=== PATIENT | male | born 1975 | race Caucasian/White ===

== ENCOUNTER 2016-12-30 07:44 | Emergency (ER) | payer SELFPAY ==
[~2016-12-30] VITALS: Ht 182.9 cm; Wt 80.0 kg
[2016-12-30 07:46] VITALS: BP 173/104; PULSE 88; RESP 20; TEMP 98.8; O2SAT 94
--- NOTE | 2016-12-30 08:11 | PD ---
HPI Chief Complaint: Back/ Neck Pain or Injury Time Seen by Provider: 08:08 Travel History International Travel<30 days: No Contact w/Intl Traveler<30days: No Traveled to known affect area: No History of Present Illness HPI 41-year-old male presents to the emergency Department with history of chronic back pain. He is requesting a prescription for ibuprofen. He is currently in a rehabilitation program which required a prescription. He does not want narcotics or any other pain medication. He complains of no other Acute problems. He has no known drug allergies. [facility] Social History Alcohol Use: No Tobacco Use: Yes Substance Use: Yes (currently in rehabilitation.) Allergies-Medications (Allergen,Severity, Reaction): Coded Allergies: No Known Allergies (Unverified , 12/30/16) Reported Meds & Prescriptions Reported Meds & Active Scripts Active Acetaminophen Extra Strength (Acetaminophen) 500 Mg Cap 1,000 Mg PO Q6H PRN Ibuprofen 600 Mg Tab 600 Mg PO Q6H PRN Review of Systems Except as stated in HPI: all other systems reviewed are Neg General / Constitutional: No: Fever Eyes: No: Visual changes HENT: No: Headaches Cardiovascular: No: Chest Pain or Discomfort Respiratory: No: Shortness of Breath Gastrointestinal: No: Abdominal Pain Genitourinary: No: Dysuria Musculoskeletal: No: Pain Skin: No Rash Neurologic: No: Weakness Psychiatric: No: Depression Endocrine: No: Polydipsia Hematologic/Lymphatic: No: Easy Bruising Physical Exam Narrative GENERAL: Patient appears in no acute distress. SKIN: Warm and dry. Normal color. Normal turgor. HEAD: Atraumatic. Normocephalic. EYES: Pupils equal and round. No scleral icterus. No injection or drainage. ENT: No nasal bleeding or discharge. Mucous membranes pink and moist. NECK: Trachea midline. Supple and nontender. CARDIOVASCULAR: Regular rate and rhythm. RESPIRATORY: No accessory muscle use. Clear to auscultation. Breath sounds equal bilaterally. MUSCULOSKELETAL: Extremities without clubbing, cyanosis, or edema. No obvious deformities. Patient has generalized chronic lower back pain without point tenderness or bony step-off. Negative straight leg raise on both sides. NEUROLOGICAL: Awake and alert. No obvious cranial nerve deficits. Motor grossly within normal limits. Five out of 5 muscle strength in the arms and legs. Normal speech. PSYCHIATRIC: Appropriate mood and affect; insight and judgment normal. Data Data Last Documented VS Vital Signs Date Time Temp Pulse Resp B/P Pulse Ox O2 Delivery O2 Flow Rate FiO2 12/30/16 07:46 98.8 88 20 173/104 94 Room Air MDM Medical Decision Making Medical Screen Exam Complete: Yes Emergency Medical Condition: Yes Differential Diagnosis Chronic back pain. Currently in rehabilitation. Need for medication prescription. Narrative Course Patient is medically stable at time of exam. Patient is given a prescription for ibuprofen 600 mg 4 times a day #40. Patient return to his rehabilitation facility Patient may return to emergency department if worsening symptoms develop. Diagnosis Primary Impression: Back pain Qualified Code: M54.5 - Chronic bilateral low back pain without sciatica Referrals: Primary Care Physician Patient Instructions: Acute Low Back Pain (ED), General Instructions Additional Instructions: Patient is given a prescription for ibuprofen 600 mg 4 times a day #40. Patient return to his rehabilitation facility Patient may return to emergency department if worsening symptoms develop. Med/Other Pt SpecificInfo: Prescription(s) given Scripts Acetaminophen (Acetaminophen Extra Strength)500 Mg Cap1,000 Mg PO Q6H PRN (PAIN SCALE 4 TO 10) #60 CAP Ref 1 Prov:Mily Canas MD 12/30/16 Ibuprofen 600 Mg [id number] Mg PO Q6H PRN (Pain/Inflammation) #40 TAB Prov:Mily Canas MD 12/30/16 Disposition: 01 DISCHARGE HOME Condition: Stable Ebenezer Ace Dec 30, 2016 08:11
[2016-12-30] MEDS ORDERED: IBUP-232 PO (08:12)
[2016-12-30] MEDS ORDERED: EXTR500C PO (08:12)
== END 2016-12-30 08:32 | disposition home or self-care (01) ==
LOC: NEPB 07:44
DX: M54.5 Low back pain (principal); F19.20 Other psychoactive substance dependence, uncomplicated; Z72.0 Tobacco use
CPT/HCPCS: 99283

== ENCOUNTER 2017-01-13 08:04 | Emergency (ER) | payer SELFPAY ==
[~2017-01-13] VITALS: Ht 185.4 cm; Wt 110.0 kg
[~2017-01-13 08:04] MED LIST: EXTR500C PO; IBUP-232 PO
[2017-01-13 08:05] VITALS: BP 142/98; PULSE 89; RESP 14; TEMP 97.9; O2SAT 98
--- NOTE | 2017-01-13 08:26 | PD ---
HPI Chief Complaint: Back/ Neck Pain or Injury Time Seen by Provider: 08:26 Travel History International Travel<30 days: No Contact w/Intl Traveler<30days: No Traveled to known affect area: No History of Present Illness HPI 41-year-old male with PMH of chronic back pain presents to the ED via EMS for evaluation of low back pain. Patient endorses increased pain in the left lower back. He denies radiation down the legs, numbness, tingling, weakness of the extremities, saddle anesthesia or incontinence. Patient is currently in the [facility] drug treatment program. He states he was seen here a few weeks ago and provided prescriptions. However he was told by the special programs director that prescriptions are only filled once a month and he has been unable to be treated for his chronic back pain. He denies new injury. He states this is his normal pain with no new symptoms. [facility] Social History Alcohol Use: No Tobacco Use: Yes Substance Use: Yes (currently in rehabilitation.) Allergies-Medications (Allergen,Severity, Reaction): Coded Allergies: No Known Allergies (Unverified , 01/13/17) Reported Meds & Prescriptions Reported Meds & Active Scripts Active Acetaminophen Extra Strength (Acetaminophen) 500 Mg Cap 1,000 Mg PO Q6H PRN Ibuprofen 600 Mg Tab 600 Mg PO Q6H PRN Review of Systems Except as stated in HPI: all other systems reviewed are Neg Physical Exam Narrative GENERAL: Well-nourished, well-developed white male in no acute distress.. SKIN: Warm and dry. HEAD: Normocephalic. EYES: No scleral icterus. No injection or drainage. NECK: Supple, trachea midline. No JVD or lymphadenopathy. CARDIOVASCULAR: Regular rate and rhythm without murmurs, gallops, or rubs. RESPIRATORY: Breath sounds equal bilaterally. No accessory muscle use. GASTROINTESTINAL: Abdomen soft, non-tender, nondistended. MUSCULOSKELETAL: No cyanosis, or edema. 5/5 strength of dorsiflexion, plantarflexion, knee flexion, hip flexion. Leg raise negative bilaterally. BACK: No obvious deformity. No midline tenderness. No CVA tenderness. TTP with mild spasm of the left lumbar musculature. Data Data Last Documented VS Vital Signs Date Time Temp Pulse Resp B/P Pulse Ox O2 Delivery O2 Flow Rate FiO2 01/13/17 08:05 97.9 89 14 142/98 98 Orders Ketorolac Inj (Toradol Inj) (01/13/17 08:45) Cyclobenzaprine (Flexeril) (01/13/17 08:45) MDM Medical Decision Making Medical Screen Exam Complete: Yes Emergency Medical Condition: Yes Differential Diagnosis Lumbago versus muscle spasm versus chronic back pain versus radiculopathy versus other Narrative Course 41-year-old male with PMH of chronic back pain presents to the ED via EMS for evaluation of low back pain. Patient states this is chronic, left lower back. He denies radiation down the legs, numbness, tingling, weakness of the extremities, saddle anesthesia, and incontinence. Patient was seen here a few weeks ago and provided outpatient prescriptions. However use in a [facility] drug treatment program. He was told that her symptoms are only filled once a month and thus his chronic pain is gone and treated. He denies new injury or new symptoms. Vitals reviewed. Physical exam reveals a well- appearing white male in no acute distress. Some tenderness to the left lumbar musculature. No midline tenderness. No limitations to range of motion of the lower extremities. Strength 5/5 in the lower extremities. Negative straight leg test bilaterally. Review of the record reveals the patient was prescribed Tylenol and ibuprofen at last visit. He is administered 60 mg of Toradol IM and a 10 mg Flexeril. Patient is still residing at the [facility] drug treatment program. Those prescriptions are awaiting fulfillment at this time. I see no need to prescribe additional medications. He is instructed to return to normal, gentle activities as tolerated, take medications as prescribed. He indicated understanding of the instructions and is amenable to plan of care. He stable and discharged home. Diagnosis Primary Impression: Chronic low back pain Qualified Code: M54.5 - Chronic left-sided low back pain without sciatica Additional Impression: Muscle spasm Referrals: Primary Care Physician Patient Instructions: Back Pain (ED), General Instructions, Lower Back Exercises (ED) Additional Instructions: A mixture of rest and activity is best for back pain. Return to normal, gentle activities as tolerated. Gentle stretching or light massage may help to reduce your pain symptoms. Warm compresses applied to the area may also help to reduce pain symptoms. Follow-up with the primary care provider. Return to the ED for any urgent or emergent medical condition. Disposition: 01 DISCHARGE HOME Condition: Stable Lynne Loredo Jan 13, 2017 08:26
[2017-01-13] MEDS ORDERED: KETOROLAC TROMETHAMINE 60 MG/2 ML (IM) VIAL IM ONE (08:45)
[2017-01-13] MEDS ORDERED: CYCLOBENZAPRINE HCL 10 MG TAB PO ONE (08:45)
== END 2017-01-13 09:01 | disposition home or self-care (01) ==
LOC: NEPB 08:04
DX: M54.5 Low back pain (principal); Z72.0 Tobacco use; F19.21 Other psychoactive substance dependence, in remission; Z71.51 Drug abuse counseling and surveillance of drug abuser
CPT/HCPCS: 96372; 99283; J1885

== ENCOUNTER 2017-01-27 10:57 | Emergency (ER) | payer SELFPAY ==
[2017-01-27 10:58] VITALS: BP 141/97; PULSE 90; RESP 20; TEMP 97.5; O2SAT 94
[2017-01-27] MEDS ORDERED: IBUP-232 PO (16:59)
[2017-01-27] MEDS ORDERED: EXTR500C PO (16:59)
== END 2017-01-27 11:00 | disposition left against medical advice (07) ==
LOC: NED 10:57
DX: M54.9 Dorsalgia, unspecified (principal); Z53.21 Procedure and treatment not carried out due to patient leaving prior to being seen by health care provider
CPT/HCPCS: 99281

== ENCOUNTER 2017-01-27 16:33 | Emergency (ER) | payer SELFPAY ==
[~2017-01-27] VITALS: Ht 185.4 cm; Wt 100.0 kg
[2017-01-27 16:34] VITALS: BP 140/97; PULSE 106; RESP 20; TEMP 98.4; O2SAT 93
--- NOTE | 2017-01-27 16:54 | PD ---
HPI Chief Complaint: Medication Refill Request Time Seen by Provider: 16:54 Travel History International Travel<30 days: No Contact w/Intl Traveler<30days: No Traveled to known affect area: No History of Present Illness HPI 41-year-old male presents to emergency department for ongoing chronic back pain. Patient is currently in a "program" at the [facility] [employer], and is only allowed to get medications through a prescription. Patient was seen by myself one month ago and given a prescription for ibuprofen and Tylenol. Patient states he is requesting another refill on this is his only option for medical care due to the program that he is in with the [facility]. He has history of chronic neck pain and is only requesting ibuprofen and Tylenol. He has no acute issues at this time. He has no known drug allergies. [facility] Social History Alcohol Use: No Tobacco Use: Yes Substance Use: Yes (currently in rehabilitation.) Allergies-Medications (Allergen,Severity, Reaction): Coded Allergies: No Known Allergies (Unverified , 01/13/17) Reported Meds & Prescriptions Reported Meds & Active Scripts Active Acetaminophen Extra Strength (Acetaminophen) 500 Mg Cap 1,000 Mg PO Q6H PRN Ibuprofen 600 Mg Tab 600 Mg PO Q6H PRN Review of Systems Except as stated in HPI: all other systems reviewed are Neg General / Constitutional: No: Fever Eyes: No: Visual changes HENT: No: Headaches Cardiovascular: No: Chest Pain or Discomfort Respiratory: No: Shortness of Breath Gastrointestinal: No: Abdominal Pain Genitourinary: No: Dysuria Musculoskeletal: No: Pain Skin: No Rash Neurologic: No: Weakness Psychiatric: No: Depression Endocrine: No: Polydipsia Hematologic/Lymphatic: No: Easy Bruising Physical Exam Narrative GENERAL: Patient appears in no acute distress. SKIN: Warm and dry. Normal color. Normal turgor. HEAD: Atraumatic. Normocephalic. EYES: Pupils equal and round. No scleral icterus. No injection or drainage. ENT: No nasal bleeding or discharge. Mucous membranes pink and moist. NECK: Trachea midline. Supple and nontender. CARDIOVASCULAR: Regular rate and rhythm. RESPIRATORY: No accessory muscle use. Clear to auscultation. Breath sounds equal bilaterally. MUSCULOSKELETAL: Extremities without clubbing, cyanosis, or edema. No obvious deformities. Generalized lower back pain with palpation. No bony tenderness. Negative straight leg raise pain bilaterally. NEUROLOGICAL: Awake and alert. No obvious cranial nerve deficits. Motor grossly within normal limits. Five out of 5 muscle strength in the arms and legs. Normal speech. PSYCHIATRIC: Appropriate mood and affect; insight and judgment normal. Data Data Last Documented VS Vital Signs Date Time Temp Pulse Resp B/P Pulse Ox O2 Delivery O2 Flow Rate FiO2 01/27/17 16:34 98.4 106 20 140/97 93 Room Air MDM Medical Decision Making Medical Screen Exam Complete: Yes Emergency Medical Condition: Yes Differential Diagnosis Acute on chronic back pain. Request for pain medication. Medication refill. Narrative Course Patient is medically stable at time of exam. Refills are given for ibuprofen 600 mg 4 times a day #40. Refills acetaminophen thousand milligrams every 6 hours #60. Patient follow-up as needed. Diagnosis Primary Impression: Chronic low back pain Qualified Code: M54.5 - Chronic bilateral low back pain without sciatica Referrals: [facility] Patient Instructions: General Instructions Additional Instructions: Refills are given for ibuprofen 600 mg 4 times a day #40. Refills acetaminophen thousand milligrams every 6 hours #60. Patient follow-up as needed. Med/Other Pt SpecificInfo: Prescription(s) given Scripts Acetaminophen (Acetaminophen Extra Strength)500 Mg Cap1,000 Mg PO Q6H PRN (PAIN SCALE 4 TO 10) #60 CAP Ref 1 Prov:Tanya Lopes MD 01/27/17 Ibuprofen 600 Mg [id number] Mg PO Q6H PRN (Pain/Inflammation) #40 TAB Prov:Tanya Lopes MD 01/27/17 Disposition: 01 DISCHARGE HOME Condition: Stable Ebenezer Ace Jan 27, 2017 16:54
[2017-01-27] MEDS ORDERED: IBUP-232 PO (16:59)
[2017-01-27] MEDS ORDERED: EXTR500C PO (16:59)
== END 2017-01-27 17:10 | disposition home or self-care (01) ==
LOC: NEPB 16:33
DX: M54.5 Low back pain (principal); G89.29 Other chronic pain; M54.2 Cervicalgia; Z72.0 Tobacco use
CPT/HCPCS: 99281

== ENCOUNTER 2017-01-30 17:28 | Emergency (ER) | payer SELFPAY ==
[~2017-01-30] VITALS: Ht 185.4 cm; Wt 110.0 kg
[2017-01-30 17:32] VITALS: BP 186/114; PULSE 78; RESP 20; TEMP 97.8; O2SAT 95
[2017-01-30] MEDS ORDERED: ALBU6.7H INH (20:18)
[2017-01-30] MEDS ORDERED: IBUP800T23 PO (20:18)
[2017-01-30] MEDS ORDERED: PRED-503 PO (20:18)
--- NOTE | 2017-01-30 20:21 | PD ---
HPI Chief Complaint: Cold / Flu Symptoms Time Seen by Provider: 20:18 Travel History International Travel<30 days: No Contact w/Intl Traveler<30days: No Traveled to known affect area: No History of Present Illness HPI 41-year-old white male presents emergency Department with complaints of cough and chest pain. He's been sick now for the past 4 days. He is had some subjective fever and chills, sore throat, cough, shortness of breath, wheezing, chest pain, back pain, injury or malaise. He states that he has a history of back problems and was given ibuprofen but it was not filled yet. He states that he is in a drug rehabilitation at the [facility]. [facility] Past Medical History Narrative Medical Back pain Diminished Hearing: No Musculoskeletal: Yes (BACK PAIN) Immunizations Current: Yes Tetanus Vaccination: < 5 Years Past Surgical History Surgical History: No Previous Surgery Social History Alcohol Use: No Tobacco Use: Yes (1PPD) Substance Use: Yes (currently in rehabilitation.) Allergies-Medications (Allergen,Severity, Reaction): Coded Allergies: No Known Allergies (Unverified , 01/30/17) Reported Meds & Prescriptions Reported Meds & Active Scripts Active Acetaminophen Extra Strength (Acetaminophen) 500 Mg Cap 1,000 Mg PO Q6H PRN Ibuprofen 600 Mg Tab 600 Mg PO Q6H PRN Review of Systems Except as stated in HPI: all other systems reviewed are Neg Physical Exam Narrative GENERAL: Well-developed, well-nourished in no acute distress. Nontoxic appearing. HEAD: Normocephalic, atraumatic. EYES: Pupils equal round and reactive. Extraocular motions intact. No scleral icterus. No injection or drainage. ENT: TMs clear without erythema. The external auditory canals clear. Nose: clear . Posterior pharynx is pink and moist. No tonsillar edema or exudate. Uvula midline. Airway patent. NECK: Trachea midline.Supple, nontender, moves head freely. No central bony tenderness or spasm. CARDIOVASCULAR: Regular rate and rhythm without murmurs, gallops, or rubs. RESPIRATORY: Few expiratory wheezes. No Rales. No rhonchi. GASTROINTESTINAL: Abdomen soft, non-tender, nondistended. No hepato-splenomegaly , or palpable masses. No guarding. EXTREMITIES: No clubbing, cyanosis, or edema. No joint tenderness, effusion, or edema noted. BACK: Nontender without deformity or crepitance. No flank tenderness. Data Data Last Documented VS Vital Signs Date Time Temp Pulse Resp B/P Pulse Ox O2 Delivery O2 Flow Rate FiO2 01/30/17 17:32 97.8 78 20 186/114 95 Room Air Orders Prednisone (Deltasone) (01/30/17 20:30) Ibuprofen (Motrin) (01/30/17 20:30) MDM Medical Decision Making Medical Screen Exam Complete: Yes Emergency Medical Condition: Yes Medical Record Reviewed: Yes Differential Diagnosis MDM: High Differential diagnoses: Pneumonia, bronchitis, URI, asthma, RAD, legionnaire's disease, SARS, ARDS, influenza, bronchiolitis, RSV,PE,CHF Narrative Course Patient's given prednisone 40 mg and Motrin 800 mg by mouth. This is URI with RAD, back pain Diagnosis Primary Impression: URI with RAD Additional Impression: back pain Patient Instructions: General Instructions Additional Instructions: Rest. Increase fluids. Motrin, prednisone, and albuterol. Followup with your Dr. in one week. Return to the ER for any problems. Med/Other Pt SpecificInfo: Prescription(s) given Scripts Ibuprofen 800 Mg [id number] Mg PO Q8H PRN (Pain/Inflammation) #30 TAB Prov:Davey Rojo MD 01/30/17 Albuterol 6.7 GM Inh (Proventil Hfa 6.7 GM Inh)90 Mcg/Act Aer2 Puff INH Q6H PRN (SHORTNESS OF BREATH) #1 INHALER Prov:Davey Rojo MD 01/30/17 Prednisone (Deltasone)20 Mg Tab20 Mg PO TID #15 TAB Prov:Davey Rojo MD 01/30/17 Disposition: 01 DISCHARGE HOME Condition: Stable Cesar Yuan Jan 30, 2017 20:21
[2017-01-30] MEDS ORDERED: predniSONE 20 MG TAB PO ONE (20:30)
[2017-01-30] MEDS ORDERED: IBUPROFEN 800 MG TAB PO ONE (20:30)
== END 2017-01-30 20:41 | disposition home or self-care (01) ==
LOC: NEPB 17:28
DX: J06.9 Acute upper respiratory infection, unspecified (principal); J45.909 Unspecified asthma, uncomplicated; M54.9 Dorsalgia, unspecified; R07.9 Chest pain, unspecified; R50.9 Fever, unspecified; F17.200 Nicotine dependence, unspecified, uncomplicated; Z87.39 Personal history of other diseases of the musculoskeletal system and connective tissue
CPT/HCPCS: 99283; J7512

== ENCOUNTER 2017-02-11 20:04 | Emergency (ER) | payer SELFPAY ==
[~2017-02-11] VITALS: Ht 185.4 cm; Wt 114.0 kg
[~2017-02-11 20:04] MED LIST changes: +ALBU6.7H INH; +IBUP800T23 PO; +PRED-503 PO
[2017-02-11 20:06] VITALS: BP 167/99; PULSE 98; RESP 16; TEMP 98.5; O2SAT 99
[2017-02-11] MEDS ORDERED: PRED-503 PO (20:28)
[2017-02-11] MEDS ORDERED: IBUP800T23 PO (20:28)
[2017-02-11] MEDS ORDERED: ALBU6.7H INH (20:28)
[2017-02-11] MEDS ORDERED: RESP: ALBUTEROL 2.5 MG/IPRATROPIUM 0.5 MG NEB (SCH) INH ONE (20:30)
[2017-02-11] MEDS ORDERED: predniSONE 20 MG TAB PO ONE (20:30)
--- NOTE | 2017-02-11 20:34 | PD ---
HPI Chief Complaint: Respiratory Symptoms Time Seen by Provider: 20:29 Travel History International Travel<30 days: No Contact w/Intl Traveler<30days: No Traveled to known affect area: No History of Present Illness HPI 41-year-old white male presents emergency Department with complaints of cough and chest pain. He's been sick now for the past 2 weeks. He states that rehabilitation has not filled his prescriptions for his inhaler and prednisone yet.. He is had some subjective fever and chills, sore throat, cough, shortness of breath, wheezing, chest pain, back pain, injury or malaise. He states that he is in a drug rehabilitation at the [facility]. [facility] Past Medical History Narrative Medical rehabilitation at the [facility]. Diminished Hearing: No Musculoskeletal: Yes (BACK PAIN) Immunizations Current: Yes Social History Alcohol Use: No Tobacco Use: Yes (1PPD) Substance Use: Yes (currently in rehabilitation.) Allergies-Medications (Allergen,Severity, Reaction): Coded Allergies: No Known Allergies (Unverified , 02/11/17) Reported Meds & Prescriptions Reported Meds & Active Scripts Active Ibuprofen 800 Mg Tab 800 Mg PO Q8H PRN Proventil Hfa 6.7 GM Inh (Albuterol Sulfate) 90 Mcg/Act Aer 2 Puff INH Q6H PRN Deltasone (Prednisone) 20 Mg Tab 20 Mg PO TID Acetaminophen Extra Strength (Acetaminophen) 500 Mg Cap 1,000 Mg PO Q6H PRN Ibuprofen 600 Mg Tab 600 Mg PO Q6H PRN Review of Systems Except as stated in HPI: all other systems reviewed are Neg Physical Exam Narrative GENERAL: Well-developed, well-nourished in no acute distress. Nontoxic appearing. HEAD: Normocephalic, atraumatic. EYES: Pupils equal round and reactive. Extraocular motions intact. No scleral icterus. No injection or drainage. ENT: TMs clear without erythema. The external auditory canals clear. Nose: clear . Posterior pharynx is mildly erythematous and moist. No tonsillar edema or exudate. Uvula midline. Airway patent. NECK: Trachea midline.Supple, nontender, moves head freely. No central bony tenderness or spasm. CARDIOVASCULAR: Regular rate and rhythm without murmurs, gallops, or rubs. RESPIRATORY: Few expiratory wheezes. No Rales. GASTROINTESTINAL: Abdomen soft, non-tender, nondistended. No hepato-splenomegaly , or palpable masses. No guarding. EXTREMITIES: No clubbing, cyanosis, or edema. No joint tenderness, effusion, or edema noted. BACK: Nontender without deformity or crepitance. No flank tenderness. Data Data Last Documented VS Vital Signs Date Time Temp Pulse Resp B/P Pulse Ox O2 Delivery O2 Flow Rate FiO2 02/11/17 20:06 98.5 98 16 167/99 99 Room Air Orders Prednisone (Deltasone) (02/11/17 20:30) Albuterol-Ipratropium Neb (Duoneb Neb) (02/11/17 20:30) MDM Medical Decision Making Medical Screen Exam Complete: Yes Emergency Medical Condition: Yes Medical Record Reviewed: Yes Differential Diagnosis MDM: High Differential diagnoses: Pneumonia, bronchitis, URI, asthma, RAD Narrative Course Patient's given prednisone 80 mg by mouth and DuoNeb. This is URI with wheezing Diagnosis Primary Impression: URI with wheezing Patient Instructions: General Instructions Additional Instructions: Rest. Increase fluids. Motrin, prednisone, and albuterol. Followup with your Dr. in one week. Return to the ER for any problems. Med/Other Pt SpecificInfo: Prescription(s) given Scripts Ibuprofen 800 Mg [id number] Mg PO Q8H PRN (Pain/Inflammation) #30 TAB Prov:Raz Mcmahon MD 02/11/17 Albuterol 6.7 GM Inh (Proventil Hfa 6.7 GM Inh)90 Mcg/Act Aer2 Puff INH Q6H PRN (SHORTNESS OF BREATH) #1 INHALER Prov:Raz Mcmahon MD 02/11/17 Prednisone (Deltasone)20 Mg Tab20 Mg PO TID #15 TAB Prov:Raz Mcmahon MD 02/11/17 Disposition: 01 DISCHARGE HOME Condition: Stable Cesar Yuan Feb 11, 2017 20:34
== END 2017-02-11 20:56 | disposition home or self-care (01) ==
LOC: NEPB 20:04
DX: J06.9 Acute upper respiratory infection, unspecified (principal); R06.2 Wheezing
CPT/HCPCS: 99284; J7512

== ENCOUNTER 2017-02-12 08:00 | Emergency (ER) | payer SELFPAY ==
[~2017-02-12] VITALS: Ht 185.4 cm; Wt 114.0 kg
[2017-02-12 08:05] VITALS: BP 171/116; PULSE 115; TEMP 98.6; O2SAT 96
[2017-02-12 08:11] VITALS: BP 159/104; PULSE 111; RESP 18; O2SAT 92
[2017-02-12 08:19] VITALS: BP 159/104; PULSE 108; RESP 16; O2SAT 96
[2017-02-12] MEDS ORDERED: RESP: ALBUTEROL 2.5 MG/IPRATROPIUM 0.5 MG NEB (SCH) NEB ONE ×2 (08:30)
--- NOTE | 2017-02-12 08:47 | PD ---
HPI Chief Complaint: Chest Pain Time Seen by Provider: 08:18 Travel History International Travel<30 days: No Contact w/Intl Traveler<30days: No Traveled to known affect area: No History of Present Illness HPI This patient complains of shortness of breath primarily. He has cough that is dry. He has congestion and runny nose. He was seen here 12 hours ago and discharged with prescriptions that were not filled. He is currently living at his [facility] drug rehabilitation program and he says that the facility has to fill his prescriptions. Unfortunately continues to smoke. Severity is mild to moderate. No alleviating factors. When he coughs he does develop some central chest discomfort. It is not exertional. It is only when he coughs. PFSH Past Medical History Diminished Hearing: No GERD: Yes Hypertension: Yes Musculoskeletal: Yes (BACK PAIN) Immunizations Current: Yes Influenza Vaccination: No Past Surgical History Abdominal Surgery: Yes (HERNIA SURGERY) Social History Alcohol Use: No Tobacco Use: Yes (1PPD) Substance Use: Yes (currently in rehabilitation.) Allergies-Medications (Allergen,Severity, Reaction): Coded Allergies: No Known Allergies (Unverified , 02/12/17) Reported Meds & Prescriptions Reported Meds & Active Scripts Active Ibuprofen 800 Mg Tab 800 Mg PO Q8H PRN Proventil Hfa 6.7 GM Inh (Albuterol Sulfate) 90 Mcg/Act Aer 2 Puff INH Q6H PRN Deltasone (Prednisone) 20 Mg Tab 20 Mg PO TID Review of Systems General / Constitutional: No: Fever HENT: Positive: Rhinorrhea, Congestion Cardiovascular: Positive: Chest Pain or Discomfort Respiratory: Positive: Cough, Shortness of Breath, Wheezing Gastrointestinal: No: Nausea, Vomiting Genitourinary: No: Hematuria Skin: No Rash Physical Exam Narrative RESPIRATORY: Respiratory effort unlabored, no retractions or use of accessory muscles. Breath sounds are clear and symmetric. CARDIOVASCULAR: Regular rate and rhythm without murmur. Extremities showed no edema or varicosities. SKIN: Inspection shows no rash or ulcers. Palpation shows no induration or nodules. GASTROINTESTINAL: Abdomen soft, non-tender, nondistended. Positive bowel sounds. No hepato-splenomegaly, or palpable masses. No guarding. NECK: Symmetrical appearance, midline trachea. No mass or crepitus. Thyroid without enlargement, tenderness, or mass. NEUROLOGICAL: Awake and alert. Pupils are equal round and reactive. Motor and sensory grossly within normal limits. Five out of 5 muscle strength in all muscle groups. Normal speech. Data Data Last Documented VS Vital Signs Date Time Temp Pulse Resp B/P Pulse Ox O2 Delivery O2 Flow Rate FiO2 02/12/17 08:19 108 16 159/104 96 Nasal Cannula 2 02/12/17 08:05 98.6 Orders Electrocardiogram (02/12/17 ) Albuterol-Ipratropium Neb (Duoneb Neb) (02/12/17 08:30) Albuterol-Ipratropium Neb (Duoneb Neb) (02/12/17 08:30) MDM Medical Decision Making Medical Screen Exam Complete: Yes Emergency Medical Condition: Yes Medical Record Reviewed: Yes Differential Diagnosis Differential diagnosis includes COPD, asthma, pneumonia, bronchitis, VT Narrative Course I have reviewed the patient's electronic medical record. I reviewed his visit from last night. He has prescriptions for inhaler and prednisone and ibuprofen which he has not filled I encouraged him to do that I reviewed his EKG which shows no ST elevation or ectopy His chest discomfort was induced by cough and clearly noncardiac and will not require inpatient evaluation Needs to quit smoking and fill his prescriptions and I would expect gradual resolution at that point Recommend primary care follow-up to discuss his symptoms I gave him 2 nebulizer treatments here Diagnosis Primary Impression: Acute bronchitis, viral Additional Instructions: The patient was advised to follow up with their physician and return if they worsen. Quit smoking if able Med/Other Pt SpecificInfo: Other Disposition: 01 DISCHARGE HOME Condition: Stable Yovani Fuentes MD Feb 12, 2017 08:47
--- NOTE | 2017-02-12 12:27 | EKG ---
Date Performed: 02/12/2017 Time Performed: 08:16:07 PTAGE: 41 years EKG: SINUS TACHYCARDIA ABNORMAL RHYTHM ECG NO PREVIOUS TRACING DOCTOR: Luis Felipe Zheng Interpretating Date/Time 02/12/2017 12:25:23
== END 2017-02-12 10:06 | disposition home or self-care (01) ==
LOC: NEPE 08:00
DX: J20.8 Acute bronchitis due to other specified organisms (principal); R94.31 Abnormal electrocardiogram [ECG] [EKG]; I10 Essential (primary) hypertension; F17.210 Nicotine dependence, cigarettes, uncomplicated
CPT/HCPCS: 93005; 94664

== ENCOUNTER 2017-02-14 19:19 | Emergency (ER) | payer SELFPAY ==
[~2017-02-14 19:19] MED LIST changes: -EXTR500C PO; -IBUP-232 PO
[2017-02-14 19:20] VITALS: BP 153/106; PULSE 89; RESP 18; TEMP 98.7; O2SAT 97
[2017-02-14] MEDS ORDERED: PRED-503 PO (19:37)
[2017-02-14] MEDS ORDERED: ALBU6.7H INH (19:37)
[2017-02-14] MEDS ORDERED: IBUP800T23 PO (19:37)
--- NOTE | 2017-02-14 19:45 | PD ---
HPI Chief Complaint: Eye Problems/Injury Time Seen by Provider: 19:39 Travel History International Travel<30 days: No Contact w/Intl Traveler<30days: No Traveled to known affect area: No History of Present Illness HPI 41-year-old white male presents to emergency department by EMS from the [facility] for evaluation of bleeding in his left eye after coughing episode. This is a patient known to me. He has had multiple ER visits for viral URI with wheezing. Once again the patient alleges that his prescriptions have not been filled. He continues to smoke. He has had complaints of cough, congestion, chest tightness and wheezing. Symptoms are moderate. 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.) Allergies-Medications (Allergen,Severity, Reaction): Coded Allergies: No Known Allergies (Unverified , 02/12/17) Reported Meds & Prescriptions Reported Meds & Active Scripts Active Ibuprofen 800 Mg Tab 800 Mg PO Q8H PRN Proventil Hfa 6.7 GM Inh (Albuterol Sulfate) 90 Mcg/Act Aer 2 Puff INH Q6H PRN Deltasone (Prednisone) 20 Mg Tab 20 Mg PO TID Review of Systems Except as stated in HPI: all other systems reviewed are Neg Eyes: Positive: Redness, No: Diploplia, Blurred Vision, Photophobia, Drainage , Foreign Body Sensation, Pain, Tearing, Visual changes Physical Exam Narrative GENERAL: Well-developed, well-nourished in no acute distress. Nontoxic appearing. HEAD: Normocephalic, atraumatic. EYES: Pupils equal round and reactive. Extraocular motions intact. No scleral icterus. Both eyes are injected. He has a subconjunctival hemorrhage to the nasal aspect of the left eye. ENT: TMs clear without erythema. The external auditory canals clear. Nose: clear . Posterior pharynx is pink and moist. No tonsillar edema or exudate. Uvula midline. Airway patent. NECK: Trachea midline.Supple, nontender, moves head freely. No central bony tenderness or spasm. CARDIOVASCULAR: Regular rate and rhythm without murmurs, gallops, or rubs. RESPIRATORY: Scattered expiratory wheezes. No Rales or rhonchi. GASTROINTESTINAL: Abdomen soft, non-tender, nondistended. No hepato-splenomegaly , or palpable masses. No guarding. EXTREMITIES: No clubbing, cyanosis, or edema. No joint tenderness, effusion, or edema noted. BACK: Nontender without deformity or crepitance. No flank tenderness. MDM Medical Decision Making Medical Screen Exam Complete: Yes Emergency Medical Condition: Yes Medical Record Reviewed: Yes Differential Diagnosis MDM: High Differential diagnoses: Acute conjunctivitis (bacterial, viral, allergic, traumatic), glaucoma, iritis, traumatic globe injury, foreign body, corneal abrasion, corneal ulcer, diabetic retinopathy, photokeratitis, herpes keratitis , CMV retinitis Narrative Course Patient has a subconjunctival hemorrhage. He has persistent viral URI with wheezing. Once again the patient is given prescriptions for albuterol prednisone and ibuprofen. Diagnosis Primary Impression: Subconjunctival hemorrhage of left eye Additional Impression: viral URI wheezing Patient Instructions: General Instructions Additional Instructions: Rest. Increase fluids. Avoid aspirin products. Robitussin-DM. Ibuprofen, prednisone, and albuterol. Followup with your Dr. in one week. Return to the ER for any problems. Stop smoking. Med/Other Pt SpecificInfo: Prescription(s) given Scripts Ibuprofen 800 Mg [id number] Mg PO Q8H PRN (Pain/Inflammation) #30 TAB Prov:oMSheri DO 02/14/17 Albuterol 6.7 GM Inh (Proventil Hfa 6.7 GM Inh)90 Mcg/Act Aer2 Puff INH Q6H PRN (SHORTNESS OF BREATH) #1 INHALER Prov:Sheri Hassan DO 02/14/17 Prednisone (Deltasone)20 Mg Tab20 Mg PO TID #15 TAB Prov:MoSheri 02/14/17 Disposition: 01 DISCHARGE HOME Condition: Stable Cesar Yuan Feb 14, 2017 19:44
== END 2017-02-14 20:09 | disposition home or self-care (01) ==
LOC: NEPB 19:19
DX: H11.32 Conjunctival hemorrhage, left eye (principal); J06.9 Acute upper respiratory infection, unspecified; I10 Essential (primary) hypertension; K21.9 Gastro-esophageal reflux disease without esophagitis; F17.210 Nicotine dependence, cigarettes, uncomplicated
CPT/HCPCS: 99283